=== PATIENT | female | born 1960 | race Caucasian/White ===

== ENCOUNTER 2018-09-24 15:30 | Emergency (ER) | payer MEDICARE, MEDICAID ==
[~2018-09-24] VITALS: Ht 162.6 cm; Wt 71.5 kg
[~2018-09-24 15:30] MED LIST: AMOX1TAB64 PO; CITA40TA5 PO; DOCU-131 PO; ESTR0.6246 PO; HYDR25TA11 PO; IBUP-1223 PO; MEDR2.5T PO; SULF1TAB24 PO; TRAM50TA2 PO; TRAZ-137 PO
[2018-09-24 16:07] LABS: CULTURE INDICATED? YES; MICROSCOPIC INDICATED
[2018-09-24 16:27] VITALS: BP 137/90
== END 2018-09-24 17:17 | disposition left against medical advice (07) ==
LOC: ED 17:11
DX: N89.8 Other specified noninflammatory disorders of vagina (principal); Z90.49 Acquired absence of other specified parts of digestive tract
CPT/HCPCS: 81001; 87077; 87086; 87186; 99283

== ENCOUNTER 2018-12-15 13:00 | Outpatient (CLI) | payer MEDICARE, MEDICAID ==
[2018-12-15 14:46] LABS: BASOPHILS # (AUTO) 0.02 x10^3/uL (0-0.1); BASOPHILS % (AUTO) 0 % (0-1); EOSINOPHILS # (AUTO) 0.25 x10^3/uL (0-0.4); EOSINOPHILS % (AUTO) 3 % (1-7); LYMPHOCYTES # (AUTO) 2.16 x10^3/uL (1-3.4); LYMPHOCYTES % (AUTO) 23 % (22-44); MD NO; MEAN CORPUSCULAR HEMOGLOBIN 32.8 pg (27.0-34.8); MEAN CORPUSCULAR HGB CONC 34.6 g/dL (32.4-35.8); MEAN PLATELET VOLUME 8.2 fL (7.4-10.4); MONOCYTES # (AUTO) 1.07 x10^3/uL (0.2-0.8); MONOCYTES % (AUTO) 11 % (2-9); NEUTROPHILS # (AUTO) 5.92 x10^3/uL (1.8-6.8); NEUTROPHILS % (AUTO) 63 % (42-75); PLATELET COUNT 335 x10^3/uL (130-400); RED BLOOD COUNT 4.58 x10^6/uL (3.82-5.3); RED CELL DISTRIBUTION WIDTH 12.6 % (9.6-15.2)
[2018-12-15 14:49] LABS: MICROSCOPIC AUTO
[2018-12-15 14:53] LABS: ALANINE AMINOTRANSFERASE 29 U/L (12-78); ALBUMIN 4.1 g/dL (3.4-5.0); ANION GAP 4 mmol/L (5-15); CALCIUM 8.9 mg/dL (8.5-10.1); CHLORIDE 109 mmol/L (98-107)
[2018-12-15 14:56] LABS: ALKALINE PHOSPHATASE 90 U/L (45-117); BILIRUBIN,TOTAL 0.7 mg/dL (0.2-1.0); CREATININE 0.77 mg/dL (0.55-1.02); TOTAL PROTEIN 7.6 g/dL (6.4-8.2)
[2018-12-15] MEDS ORDERED: GABA300C10 PO (15:00)
[2018-12-15] MEDS ORDERED: OXYC-302 PO (15:00)
[2018-12-15 15:10] LABS: CULTURE INDICATED? YES
== END 2018-12-15 23:59 | disposition home or self-care (01) ==
LOC: STAR 13:00
PROVIDERS: ATTEND Obstetrics & Gynecology
DX: R06.02 Shortness of breath (principal); I10 Essential (primary) hypertension; I63.9 Cerebral infarction, unspecified; R82.998 Other abnormal findings in urine
CPT/HCPCS: 36415; 71046; 80053; 81001; 85025; 87086; 93005

== ENCOUNTER → 2018-12-24 | Outpatient (CLI) | payer MEDICARE, MEDICAID ==
[~2018-12-24] MED LIST changes: +GABA300C10 PO; +OXYC-302 PO
== END | disposition home or self-care (01) ==
LOC: CFH 08:54
PROVIDERS: ATTEND Obstetrics & Gynecology
DX: Z12.31 Encounter for screening mammogram for malignant neoplasm of breast (principal)
CPT/HCPCS: 77067

== ENCOUNTER 2018-12-29 10:13 | Outpatient (CLI) | payer MEDICARE, MEDICAID ==
[~2018-12-29] VITALS: Ht 160 cm; Wt 69.6 kg
[2018-12-29] MEDS ORDERED: LACTATED RINGERS 1,000 ML IV SCH (10:50)
[2018-12-29 10:53] VITALS: BP 137/87
[2018-12-29 11:14] LABS: BARBITURATE SCREEN, URINE Negative (Negative); BENZODIAZEPINE SCREEN, URINE Negative (Negative); CANNABINOID SCREEN, URINE Positive (Negative); COCAINE SCREEN, URINE Negative (Negative); METHADONE SCREEN, URINE Negative (Negative); OPIATE SCREEN, URINE Negative (Negative)
[2018-12-29 11:16] LABS: AMPHETAMINE SCREEN, URINE Positive (Negative)
== END 2018-12-29 23:59 | disposition home or self-care (01) ==
LOC: OUT 10:13 → CLISVCS 10:13 → EDSTATUS 12:30 → CLISVCS 23:59
PROVIDERS: ATTEND Obstetrics & Gynecology
DX: N95.0 Postmenopausal bleeding (principal); Z53.9 Procedure and treatment not carried out, unspecified reason; Z90.49 Acquired absence of other specified parts of digestive tract; Z98.890 Other specified postprocedural states; Z90.721 Acquired absence of ovaries, unilateral; Z72.89 Other problems related to lifestyle; Z88.1 Allergy status to other antibiotic agents; Z79.899 Other long term (current) drug therapy
CPT/HCPCS: 80307

== ENCOUNTER 2019-01-11 05:32 | Day surgery (SDC) | payer MEDICARE, MEDICAID ==
[~2019-01-11] VITALS: Ht 162.6 cm; Wt 70.0 kg
[2019-01-11] MEDS ORDERED: LACTATED RINGERS 1,000 ML IV SCH (06:02)
[2019-01-11 06:29] LABS: AMPHETAMINE SCREEN, URINE Negative (Negative); BARBITURATE SCREEN, URINE Negative (Negative); BENZODIAZEPINE SCREEN, URINE Negative (Negative); CANNABINOID SCREEN, URINE Positive (Negative); COCAINE SCREEN, URINE Negative (Negative); METHADONE SCREEN, URINE Negative (Negative); OPIATE SCREEN, URINE Positive (Negative)
[2019-01-11 06:36] VITALS: BP 161/87
[2019-01-11] MEDS ORDERED: SILVER NITRATE STICK TP ONE (06:38)
[2019-01-11] MEDS ORDERED: FENTANYL PF 100 MCG/2ML ONE ×3 (07:28→08:20)
[2019-01-11] MEDS ORDERED: MIDAZOLAM 1 MG/ML, 2ML ONE ×2 (07:28→08:21)
[2019-01-11] MEDS ORDERED: PROPOFOL 10 MG/ML, 20ML ONE (07:30)
[2019-01-11] MEDS ORDERED: DEXAMETHASONE 4 MG/ML, 1ML ONE (07:32)
[2019-01-11] MEDS ORDERED: ONDANSETRON 2MG/ML, 2ML ONE (07:32)
[2019-01-11] MEDS ORDERED: KETOROLAC 30 MG/1 ML ONE (07:33)
[2019-01-11] MEDS ORDERED: ALBUTEROL HFA 90 MCG/SPRAY ONE (07:57)
[2019-01-11] MEDS ORDERED: MORPHINE SULFATE 4 MG/ML, 1ML IVPush PRN (08:00)
[2019-01-11] MEDS ORDERED: LABETALOL 5MG/ML, 20ML IV PRN (08:00)
[2019-01-11] MEDS ORDERED: ACETAMINOPHEN 325 MG TABLET PO PRN (08:00)
[2019-01-11] MEDS ORDERED: MIDAZOLAM 1 MG/ML, 2ML IV PRN (08:00)
[2019-01-11] MEDS ORDERED: DIAZEPAM 5 MG/ML, 2ML IVPush PRN (08:00)
[2019-01-11] MEDS ORDERED: ALBUTEROL SULFATE 2.5 MG/3 ML NPPB PRN (08:00)
[2019-01-11] MEDS ORDERED: hydrALAzine 20 MG/ML, 1ML IV PRN (08:00)
[2019-01-11] MEDS ORDERED: OXYcodone 5 MG/5 ML ORAL.SOL UDC PO PRN (08:00)
[2019-01-11] MEDS ORDERED: HALOPERIDOL 5 MG/ML IV PRN (08:00)
[2019-01-11] MEDS ORDERED: ONDANSETRON 2MG/ML, 2ML IV PRN (08:00)
[2019-01-11] MEDS ORDERED: EPHEDRINE 50 MG/ML, 1ML IVPush PRN (08:00)
[2019-01-11] MEDS ORDERED: MEPERIDINE/PF 25MG/0.5ML IVPush PRN (08:00)
[2019-01-11] MEDS ORDERED: FENTANYL PF 100 MCG/2ML IV PRN (08:00)
[2019-01-11] MEDS ORDERED: ONDANSETRON ODT 8 MG PO PRN (08:00)
[2019-01-11] MEDS ORDERED: PROMETHAZINE 12.5 MG SUPP PR PRN (08:00)
[2019-01-11] MEDS ORDERED: PROMETHAZINE 25 MG/ML, 1ML IV PRN (08:00)
[2019-01-11] MEDS ORDERED: OXYcodone 5 MG/5 ML ORAL.SOL UDC ONE (08:21)
[2019-01-11] MEDS ORDERED: HYDROmorphone 2 MG/ML, 1ML ONE (08:21)
[2019-01-11] MEDS: HYDROmorphone 2 MG/ML, 1ML IVPush PRN ×4 (08:24→08:46)
[2019-01-11] MEDS ORDERED: DIPHENHYDRAMINE 50 MG/ML, 1ML ONE (09:02)
[2019-01-11] MEDS ORDERED: DIPHENHYDRAMINE 50 MG/ML, 1ML IVPush ONE (09:30)
== END 2019-01-11 10:55 | disposition home or self-care (01) ==
LOC: OUT 05:32
PROVIDERS: ATTEND Obstetrics & Gynecology
DX: N95.0 Postmenopausal bleeding (principal); I12.9 Hypertensive chronic kidney disease with stage 1 through stage 4 chronic kidney disease, or unspecified chronic kidney disease; N18.9 Chronic kidney disease, unspecified; F32.9 Major depressive disorder, single episode, unspecified; G43.909 Migraine, unspecified, not intractable, without status migrainosus; Z79.899 Other long term (current) drug therapy; Z86.19 Personal history of other infectious and parasitic diseases; Z87.440 Personal history of urinary (tract) infections; Z88.1 Allergy status to other antibiotic agents; Z72.89 Other problems related to lifestyle
CPT/HCPCS: 58558; 80307; 88305; J1100; J1170; J1200; J1885; J2405; J2704; J3010; J2250

== ENCOUNTER 2019-01-17 09:54 | Inpatient (IN) | payer MEDICARE, MEDICAID ==
[~2019-01-17] VITALS: Ht 162.6 cm; Wt 76.4 kg
[2019-01-17] MEDS ORDERED: VANCOMYCIN 1,300 MG in SODIUM CHLORIDE 0.9% 250 ML IV ONE (10:30)
[2019-01-17] MEDS ORDERED: SODIUM CHLORIDE 0.9% 1,000ML IVBOLUS ONE (10:30)
[2019-01-17] MEDS ORDERED: PHARMACOKINETIC CONSULTATION MC ONE (10:30)
[2019-01-17] MEDS ORDERED: PIPERACILLIN/TAZO/PMX 3.375GM 50 ML IVPB ONE (10:30)
[2019-01-17] MEDS ORDERED: VANCOMYCIN PER PHARMACY MC ONE (10:30)
[2019-01-17 10:51] LABS: MEAN CORPUSCULAR HEMOGLOBIN 31.9 pg (27.0-34.8); MEAN CORPUSCULAR HGB CONC 31.3 g/dL (32.4-35.8); MEAN CORPUSCULAR VOLUME 101.9 fL (80-100); MEAN PLATELET VOLUME 8.4 fL (7.4-10.4); PLATELET COUNT 253 x10^3/uL (130-400); RED BLOOD COUNT 4.59 x10^6/uL (3.82-5.3); RED CELL DISTRIBUTION WIDTH 13.6 % (9.6-15.2)
[2019-01-17 10:54] LABS: ALBUMIN 3.5 g/dL (3.4-5.0); ANION GAP 9 mmol/L (5-15); CALCIUM 8.7 mg/dL (8.5-10.1); CHLORIDE 106 mmol/L (98-107); CREATININE 0.77 mg/dL (0.55-1.02)
[2019-01-17] MEDS ORDERED: ONDANSETRON 2MG/ML, 2ML IVPush ONE (11:00)
[2019-01-17] MEDS ORDERED: ONDANSETRON 2MG/ML, 2ML ONE (11:03)
[2019-01-17] MEDS ORDERED: MORPHINE SULFATE 4 MG/ML, 1ML ONE ×2 (11:04→13:42)
[2019-01-17] MEDS: MORPHINE SULFATE 4 MG/ML, 1ML IVPush PRN ×2 (11:05→13:47)
[2019-01-17 11:06] LABS: MD YES
[2019-01-17 11:09] LABS: BAND#(MANUAL) 1.22 x10^3/uL; BANDS%(MANUAL) 17 % (0-7); EOS#(MANUAL) 0.07 x10^3/uL (0.0-0.4); EOS% (MANUAL) 1 % (1-7); LYMPH#(MANUAL) 0.72 x10^3/uL (1-3.4); LYMPHS% (MANUAL) 10 % (22-44); SEG#(MANUAL) 5.18 x10^3/uL (1.8-6.8); SEGS% (MANUAL) 72 % (42-75)
[2019-01-17 11:11] LABS: <PLATELET ESTIMATE> ADEQUATE; <PLT MORPHOLOGY> NORMAL PLT MORPH
[2019-01-17] MEDS ORDERED: OMNIPAQUE 350 MG/ML, 100ML BOTTLE ONE (13:14)
[2019-01-17 13:59] LABS: ALBUMIN 3.5 g/dL (3.4-5.0); BILIRUBIN, DIRECT 0.2 mg/dL (0.1-0.2)
[2019-01-17] MEDS ORDERED: ONDANSETRON 2MG/ML, 2ML IVPush PRN (14:00)
[2019-01-17] MEDS ORDERED: BISACODYL 10 MG SUPP PR PRN (14:00)
[2019-01-17] MEDS ORDERED: SENNA/DOCUSATE TABLET PO SCH (14:00)
[2019-01-17] MEDS ORDERED: morphine SULFATE 10 MG/ML, 1ML IVPush PRN (14:00)
[2019-01-17] MEDS ORDERED: GENTAMICIN PER PHARMACY MC PRN (14:00)
[2019-01-17 14:02] LABS: BILIRUBIN,INDIRECT 0.5 mg/dL (0.0-2.0); BILIRUBIN,TOTAL 0.7 mg/dL (0.2-1.0); TOTAL PROTEIN 7.1 g/dL (6.4-8.2)
[2019-01-17] MEDS: LACTATED RINGERS 1,000 ML IV SCH (14:11)
--- NOTE | 2019-01-17 14:16 | NUR ---
TASK RN: STRAIGHT CATH COMPLETED BY THIS RN. UA COLLECTED AND WALKED TO LAB.
[2019-01-17 14:21] LABS: MICROSCOPIC NOT IND
--- NOTE | 2019-01-17 14:34 | NUR ---
SBAR TO SUZY SANTOS VIA TELEPHONE
[2019-01-17 15:14] VITALS: BP 94/62
[2019-01-17] MEDS ORDERED: PHARMACOKINETIC MONITORING MC PRN (15:30)
[2019-01-17] MEDS: GENTAMICIN 300 MG in SODIUM CHLORIDE 0.9% 100 ML IV SCH (17:16)
[2019-01-17] MEDS: SIMETHICONE 80 MG CHEW TAB PO SCH ×2 (17:26→20:06)
[2019-01-17] MEDS: GABAPENTIN 100 MG CAPSULE PO SCH ×2 (17:27→20:06)
[2019-01-17] MEDS: CLINDAMYCIN PMX 900MG/50ML 50 ML IV SCH (18:38)
[2019-01-17] MEDS: AMPICILLIN 2 GM in SODIUM CHLORIDE 0.9% 100 ML IV SCH (19:41)
[2019-01-17] MEDS: OXYcodone/APAP 5/325MG TABLET PO PRN (20:06)
[2019-01-17] MEDS: KETOROLAC 30 MG/1 ML IVPush PRN (20:06)
[2019-01-17] MEDS: DOCUSATE 100 MG CAPSULE PO SCH (20:06)
[2019-01-17 20:13] VITALS: BP 99/66
[2019-01-18 01:19] VITALS: BP 103/66
[2019-01-18] MEDS: LACTATED RINGERS 1,000 ML IV SCH ×2 (01:22→19:30)
[2019-01-18] MEDS: AMPICILLIN 2 GM in SODIUM CHLORIDE 0.9% 100 ML IV SCH ×4 (01:22→19:54)
[2019-01-18] MEDS: CLINDAMYCIN PMX 900MG/50ML 50 ML IV SCH ×3 (02:37→17:56)
[2019-01-18 05:55] LABS: BASOPHILS # (AUTO) 0.01 x10^3/uL (0-0.1); BASOPHILS % (AUTO) 0 % (0-1); EOSINOPHILS # (AUTO) 0.21 x10^3/uL (0-0.4); EOSINOPHILS % (AUTO) 2 % (1-7); LYMPHOCYTES # (AUTO) 0.83 x10^3/uL (1-3.4); LYMPHOCYTES % (AUTO) 7 % (22-44); MD NO; MEAN CORPUSCULAR HEMOGLOBIN 32.2 pg (27.0-34.8); MEAN CORPUSCULAR HGB CONC 33.6 g/dL (32.4-35.8); MEAN CORPUSCULAR VOLUME 95.7 fL (80-100); MEAN PLATELET VOLUME 8.6 fL (7.4-10.4); MONOCYTES # (AUTO) 1.36 x10^3/uL (0.2-0.8); MONOCYTES % (AUTO) 11 % (2-9); NEUTROPHILS # (AUTO) 9.78 x10^3/uL (1.8-6.8); NEUTROPHILS % (AUTO) 80 % (42-75); PLATELET COUNT 224 x10^3/uL (130-400); RED BLOOD COUNT 4.03 x10^6/uL (3.82-5.3); RED CELL DISTRIBUTION WIDTH 12.6 % (9.6-15.2)
[2019-01-18 06:09] LABS: CHLORIDE 108 mmol/L (98-107)
[2019-01-18 06:27] LABS: ALANINE AMINOTRANSFERASE 75 U/L (12-78); ALBUMIN 2.8 g/dL (3.4-5.0); ALKALINE PHOSPHATASE 85 U/L (45-117); ANION GAP 4 mmol/L (5-15); BILIRUBIN,TOTAL 0.5 mg/dL (0.2-1.0); CALCIUM 8.2 mg/dL (8.5-10.1); CREATININE 0.76 mg/dL (0.55-1.02); TOTAL PROTEIN 6.2 g/dL (6.4-8.2)
[2019-01-18 07:36] VITALS: BP 103/65
[2019-01-18] MEDS: SIMETHICONE 80 MG CHEW TAB PO SCH ×3 (08:00→19:54)
[2019-01-18] MEDS: DOCUSATE 100 MG CAPSULE PO SCH ×2 (08:00→19:54)
[2019-01-18] MEDS: GABAPENTIN 100 MG CAPSULE PO SCH ×3 (08:00→19:54)
[2019-01-18] MEDS: OXYcodone/APAP 5/325MG TABLET PO PRN (08:07)
[2019-01-18 14:22] VITALS: BP 101/70
[2019-01-18] MEDS: OXYcodone IR 5MG TABLET PO PRN ×2 (15:07→19:54)
[2019-01-18] MEDS: GENTAMICIN 300 MG in SODIUM CHLORIDE 0.9% 100 ML IV SCH (16:06)
[2019-01-18 19:45] VITALS: BP 111/78
[2019-01-18] MEDS: KETOROLAC 30 MG/1 ML IVPush PRN (19:54)
[2019-01-19] MEDS: AMPICILLIN 2 GM in SODIUM CHLORIDE 0.9% 100 ML IV SCH ×2 (00:34→06:19)
[2019-01-19 00:36] VITALS: BP 109/70
[2019-01-19] MEDS: LACTATED RINGERS 1,000 ML IV SCH (03:30)
[2019-01-19] MEDS: CLINDAMYCIN PMX 900MG/50ML 50 ML IV SCH (03:44)
[2019-01-19 06:18] LABS: ALANINE AMINOTRANSFERASE 55 U/L (12-78); ALBUMIN 2.6 g/dL (3.4-5.0); ANION GAP 6 mmol/L (5-15); CALCIUM 8.3 mg/dL (8.5-10.1); CHLORIDE 109 mmol/L (98-107); CREATININE 0.67 mg/dL (0.55-1.02)
[2019-01-19 06:21] LABS: ALKALINE PHOSPHATASE 84 U/L (45-117); BILIRUBIN,TOTAL 0.3 mg/dL (0.2-1.0); TOTAL PROTEIN 6.2 g/dL (6.4-8.2)
[2019-01-19 06:31] LABS: MEAN CORPUSCULAR HEMOGLOBIN 32.6 pg (27.0-34.8); MEAN CORPUSCULAR HGB CONC 34.4 g/dL (32.4-35.8); MEAN CORPUSCULAR VOLUME 94.9 fL (80-100); MEAN PLATELET VOLUME 8.8 fL (7.4-10.4); PLATELET COUNT 239 x10^3/uL (130-400); RED BLOOD COUNT 4.19 x10^6/uL (3.82-5.3); RED CELL DISTRIBUTION WIDTH 12.5 % (9.6-15.2)
[2019-01-19 07:02] LABS: BASOPHILS # (AUTO) 0.03 x10^3/uL (0-0.1); BASOPHILS % (AUTO) 0 % (0-1); EOSINOPHILS # (AUTO) 0.29 x10^3/uL (0-0.4); EOSINOPHILS % (AUTO) 3 % (1-7); LYMPHOCYTES # (AUTO) 1.33 x10^3/uL (1-3.4); LYMPHOCYTES % (AUTO) 16 % (22-44); MD SCAN; MONOCYTES # (AUTO) 1.57 x10^3/uL (0.2-0.8); MONOCYTES % (AUTO) 19 % (2-9); NEUTROPHILS # (AUTO) 5.28 x10^3/uL (1.8-6.8); NEUTROPHILS % (AUTO) 62 % (42-75)
[2019-01-19 07:26] VITALS: BP 115/71
[2019-01-19] MEDS: SIMETHICONE 80 MG CHEW TAB PO SCH (08:20)
[2019-01-19] MEDS: GABAPENTIN 100 MG CAPSULE PO SCH (08:20)
[2019-01-19] MEDS: DOCUSATE 100 MG CAPSULE PO SCH (08:21)
[2019-01-19] MEDS ORDERED: METR500T PO (10:14)
[2019-01-19] MEDS ORDERED: AMOX1TAB64 PO (10:14)
[2019-01-19] MEDS ORDERED: OXYC-302 PO (10:15)
== END 2019-01-19 10:26 | disposition home or self-care (01) | DRG 759 ==
LOC: ED 10:11 → EDIP 13:50 → 4NOR 14:48 → DCLOUNGE 01-19 10:11
PROVIDERS: ADMIT Obstetrics & Gynecology; ATTEND Obstetrics & Gynecology
PROC: 0T9B70Z Drainage of Bladder with Drainage Device, Via Natural or Artificial Opening (ICD-10-PCS; principal; 2019-01-17)
DX: N71.0 Acute inflammatory disease of uterus (principal); F12.90 Cannabis use, unspecified, uncomplicated; F17.210 Nicotine dependence, cigarettes, uncomplicated; I10 Essential (primary) hypertension; J44.9 Chronic obstructive pulmonary disease, unspecified; K59.00 Constipation, unspecified; N89.8 Other specified noninflammatory disorders of vagina; Z86.73 Personal history of transient ischemic attack (TIA), and cerebral infarction without residual deficits; Z90.710 Acquired absence of both cervix and uterus; Z87.410 Personal history of cervical dysplasia; Z90.49 Acquired absence of other specified parts of digestive tract
CPT/HCPCS: 36415; 74177; 80048; 80053; 80076; 80170; 81003; 82040; 83605; 85025; 87040; 87086; 87491; 87591; 96365; 96366; 96375; 99285; G0378; J0290; J1885; J2405; J2543; J3370; Q9967; J1580; J7030; J7050; J7120

== ENCOUNTER 2019-02-26 07:57 | Emergency (ER) | payer MEDICARE, MEDICAID ==
[~2019-02-26] VITALS: Ht 160 cm; Wt 69.2 kg
[~2019-02-26 07:57] MED LIST changes: +METR500T PO
[2019-02-26 08:02] VITALS: BP 146/86
[2019-02-26] MEDS ORDERED: FAMOTIDINE 20 MG/2 ML IVP ONE (08:30)
[2019-02-26] MEDS ORDERED: SODIUM CHLORIDE 0.9% 1,000ML IVBOLUS ONE (08:30)
[2019-02-26] MEDS ORDERED: SODIUM CHLORIDE FLUSH 10ML SYR IVF ONE (08:30)
[2019-02-26] MEDS ORDERED: MAALOX/HYOSCYAMINE/LIDOCAINE 45 ML BTL PO ONE (08:30)
[2019-02-26] MEDS ORDERED: ONDANSETRON 2MG/ML, 2ML IVPush ONE (08:30)
--- NOTE | 2019-02-26 09:06 | NUR ---
PT DENIES ABILITY TO PRODUCE UA AT THIS TIME
--- NOTE | 2019-02-26 09:51 | NUR ---
x2 us iv attempt fail, pt tolerated fair. katelyn alcala aware. new orders received
[2019-02-26] MEDS ORDERED: FAMOTIDINE 20 MG TABLET ONE (09:57)
[2019-02-26] MEDS ORDERED: ONDANSETRON ODT 4 MG ONE (09:58)
[2019-02-26] MEDS ORDERED: MAALOX/HYOSCYAMINE/LIDOCAINE 45 ML BTL ONE (09:58)
[2019-02-26] MEDS ORDERED: FAMOTIDINE 20 MG TABLET PO ONE (10:00)
[2019-02-26] MEDS ORDERED: ONDANSETRON ODT 4 MG PO ONE (10:00)
[2019-02-26 10:50] LABS: MEAN CORPUSCULAR HEMOGLOBIN 31.9 pg (27.0-34.8); MEAN CORPUSCULAR HGB CONC 33.1 g/dL (32.4-35.8); MEAN CORPUSCULAR VOLUME 96.4 fL (80-100); MEAN PLATELET VOLUME 8.5 fL (7.4-10.4); PLATELET COUNT 293 x10^3/uL (130-400); RED BLOOD COUNT 4.63 x10^6/uL (3.82-5.3); RED CELL DISTRIBUTION WIDTH 12.3 % (9.6-15.2)
[2019-02-26 10:59] LABS: ALBUMIN 3.4 g/dL (3.4-5.0); ANION GAP 7 mmol/L (5-15); CHLORIDE 107 mmol/L (98-107)
[2019-02-26 11:02] LABS: ALANINE AMINOTRANSFERASE 24 U/L (12-78); ALKALINE PHOSPHATASE 67 U/L (45-117); BILIRUBIN,TOTAL 0.7 mg/dL (0.2-1.0); CREATININE 0.65 mg/dL (0.55-1.02); TOTAL PROTEIN 7.5 g/dL (6.4-8.2)
[2019-02-26 11:25] LABS: BASOPHILS # (AUTO) 0.01 x10^3/uL (0-0.1); BASOPHILS % (AUTO) 0 % (0-1); EOSINOPHILS # (AUTO) 0.02 x10^3/uL (0-0.4); EOSINOPHILS % (AUTO) 0 % (1-7); LYMPHOCYTES # (AUTO) 1.12 x10^3/uL (1-3.4); LYMPHOCYTES % (AUTO) 7 % (22-44); MD SCAN; MONOCYTES # (AUTO) 1.92 x10^3/uL (0.2-0.8); MONOCYTES % (AUTO) 13 % (2-9); NEUTROPHILS # (AUTO) 12.15 x10^3/uL (1.8-6.8); NEUTROPHILS % (AUTO) 80 % (42-75)
[2019-02-26 11:33] LABS: MICROSCOPIC AUTO
[2019-02-26 11:47] LABS: CULTURE INDICATED? YES
== END 2019-02-26 12:53 | disposition home or self-care (01) ==
LOC: ED 08:36
DX: D72.829 Elevated white blood cell count, unspecified (principal); R19.7 Diarrhea, unspecified; R11.2 Nausea with vomiting, unspecified; R10.84 Generalized abdominal pain; J44.9 Chronic obstructive pulmonary disease, unspecified; Z90.49 Acquired absence of other specified parts of digestive tract; Z79.899 Other long term (current) drug therapy; Z90.710 Acquired absence of both cervix and uterus
CPT/HCPCS: 36415; 74021; 80053; 81001; 83690; 85025; 87086; 99284; Q0162

== ENCOUNTER 2021-02-19 21:52 | Emergency (ER) | payer MEDICARE, MEDICAID ==
[~2021-02-19] VITALS: Ht 162.6 cm; Wt 70.4 kg
[~2021-02-19 21:52] MED LIST changes: +HYDR-826 PO; -HYDR25TA11 PO; -OXYC-302 PO; +OXYC1TAB14 PO; +SULF-23 PO; -SULF1TAB24 PO; -TRAZ-137 PO; +TRAZ-175 PO
--- NOTE | 2021-02-19 22:21 | NUR ---
CLEAN CATCH UA SENT
[2021-02-19 22:28] LABS: MICROSCOPIC AUTO
--- NOTE | 2021-02-19 23:36 | NUR ---
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
[2021-02-20] MEDS ORDERED: CEFTRIAXONE 1,000 MG IM ONE (00:30)
[2021-02-20] MEDS ORDERED: CEFTRIAXONE 1,000 MG ONE (00:33)
[2021-02-20 00:51] VITALS: BP 136/74
== END 2021-02-20 01:05 | disposition home or self-care (01) ==
LOC: ED 02-20 00:55
DX: N30.00 Acute cystitis without hematuria (principal); F17.210 Nicotine dependence, cigarettes, uncomplicated; J44.9 Chronic obstructive pulmonary disease, unspecified; Z90.49 Acquired absence of other specified parts of digestive tract; Z90.710 Acquired absence of both cervix and uterus
CPT/HCPCS: 81001; 87077; 87086; 87186; 96372; 99283; 99406; J0696